=== PATIENT | male | born 1960 | race African-American/Black ===

== ENCOUNTER → 2017-06-25 | Emergency (ER) | payer OTHER ==
[~2017-06-25] VITALS: Ht 177.8 cm; Wt 150.0 kg
[~2017-06-25] MED LIST: CALCIUM CHLORIDE 100 MG/ML 10 ML SYRINGE IVP ONE; EPINEPHrine 1:10,000 [1 MG/10 ML] SYRINGE ONE; ETOMIDATE 2 MG/ML 10 ML VIAL ONE; IBUPROFEN 100 MG/5 ML SUSPENSION UDCUP ONE; LIDOCAINE HCL/PF 2% 5 ML SYRINGE IVP ONE; SODIUM BICARBONATE [ADULT] 8.4% 50 MEQ/50 ML SYRINGE IVP ONE
[2017-06-25 08:30] VITALS: BP 0/0
== END | disposition home or self-care (01) ==
LOC: EMS 08:12
DX: I46.9 Cardiac arrest, cause unspecified (principal); I25.2 Old myocardial infarction
CPT/HCPCS: 31500; 92950; 99291; J0171; J3490 ×4